=== PATIENT | female | born 1975 | race Caucasian/White ===

== ENCOUNTER 2022-06-22 05:17 | Day surgery (SDC) | payer BC, OTHER ==
[2022-06-22] MEDS ORDERED: fentaNYL 100 MCG/2 ML SDV IV ONE ×3 (05:18→06:44)
[2022-06-22] MEDS ORDERED: Midazolam 1 MG/ML 2 ML SDV IV ONE ×3 (05:18→06:46)
[2022-06-22] MEDS ORDERED: Dextrose 5%-0.45% NaCl 1,000 ML IV SCH (06:00)
[2022-06-22] MEDS ORDERED: Midazolam 1 MG/ML 2 ML SDV ONE (06:04)
[2022-06-22] MEDS ORDERED: fentaNYL 100 MCG/2 ML SDV ONE (06:05)
[2022-06-22 08:53] VITALS: BP 109/71; PULSE 61
== END 2022-06-22 08:35 | disposition home or self-care (01) ==
LOC: DL.ENDO 05:17
PROVIDERS: ATTEND Internal Medicine Gastroenterology
DX: K29.50 Unspecified chronic gastritis without bleeding (principal); K25.9 Gastric ulcer, unspecified as acute or chronic, without hemorrhage or perforation; E66.09 Other obesity due to excess calories; K21.00 Gastro-esophageal reflux disease with esophagitis, without bleeding; E03.9 Hypothyroidism, unspecified; Z87.42 Personal history of other diseases of the female genital tract; Z90.710 Acquired absence of both cervix and uterus; Z68.42 Body mass index [BMI] 45.0-49.9, adult; Z79.899 Other long term (current) drug therapy
CPT/HCPCS: 43239; 87077; J2250; J3010; J7042